=== PATIENT | female | born 1985 | race Caucasian/White ===

== ENCOUNTER → 2020-06-26 | Outpatient (CLI) | payer OTHER ==
--- NOTE | 2020-06-29 09:42 | USB ---
Reason for exam: clinical finding. Indicated problem(s): palpable abnormality in the right breast. Physical Findings: Nurse Summary: bilateral nodularity, right breast palpable 12 o'clock 1 x 0.5cm tender, movable (nurse ts). US Breast BILAT Right complete breast ultrasound includes all four quadrants, the retroareolar region and axilla. Finding demonstrates no cystic or solid lesion seen. Left complete breast ultrasound includes all four quadrants, the retroareolar region and axilla. Finding demonstrates no cystic or solid lesion seen. These results were verbally communicated with the patient and result sheet given to the patient on 06/26/20. ASSESSMENT: Negative, BI-RAD 1 RECOMMENDATION: Follow-up diagnostic mammogram of both breasts.
--- NOTE | 2020-06-29 09:44 | MM ---
Reason for exam: screening (asymptomatic). Baseline mammogram. MG 3D Screening Mammo W/Cad Bilateral CC and MLO view(s) were taken. The breast tissue is extremely dense which could obscure a lesion on mammography. There is no discrete abnormality no cystic or solid lesion seen. These results were verbally communicated with the patient and result sheet given to the patient on 06/26/20. ASSESSMENT: Negative, BI-RAD 1 RECOMMENDATION: Routine screening mammogram of both breasts in 1 year. Manage patient on a clinical basis.
== END | disposition home or self-care (01) ==
LOC: RADUSWWP 09:43
PROVIDERS: ATTEND Obstetrics & Gynecology
DX: Z12.31 Encounter for screening mammogram for malignant neoplasm of breast (principal); R92.8 Other abnormal and inconclusive findings on diagnostic imaging of breast; N63.10 Unspecified lump in the right breast, unspecified quadrant; N63.20 Unspecified lump in the left breast, unspecified quadrant
CPT/HCPCS: 77063; 77067

== ENCOUNTER → 2022-01-11 | Outpatient (CLI) | payer OTHER ==
--- NOTE | 2022-01-11 08:24 | CT ---
EXAMINATION TYPE: CT sinus wo con DATE OF EXAM: 01/11/2022 COMPARISON: None available HISTORY: Chronic sinusitis. CT DLP: 630.7 mGycm. Automated Exposure Control for Dose Reduction was Utilized. TECHNIQUE: CT scan of the sinuses is performed without contrast, axial images are obtained, coronal r eformatted images are also reviewed. FINDINGS: Mildly dilated bony nasal septum convex to the left side with a bony spur. Minimal mucosal thickening of the inferior aspect of the nasal fossa bilaterally. Paradoxical middle turbinates with left middl e ryan bullosa and pneumatization of the vertical lamella bilaterally. Patent infundibulum bilaterally. Slightly obliterated left ostiomeatal complex by mild mucosal thicke martha. Minimal mucosal thickening of right ostiomeatal complex. Minimal mucosal thickening of the maxi llary sinuses, mainly the alveolar recesses. Intact bony boundaries of the maxillary sinuses. Unremarkable frontal sinus, ethmoid air cells and sphenoid sinus. Mild mucosal thickening at the sphe noethmoidal recess. Clear visualized mastoid air cells. Asymmetrically smaller left mandibular condyl e, please correlate clinically. Unremarkable visualized portion of the brain and orbits. Slightly pro minent palatine tonsils, please correlate clinically. IMPRESSION: Mild mucosal thickening of the maxillary sinuses, otherwise clear paranasal sinuses. Other findings a s described above.
== END | disposition home or self-care (01) ==
LOC: RADCTMAIN 07:00
PROVIDERS: ATTEND Otolaryngology
DX: J32.9 Chronic sinusitis, unspecified (principal)
CPT/HCPCS: 70486